=== PATIENT | male | born 2005 | race Two or more races ===

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

== ENCOUNTER 2025-06-09 23:42 | Emergency (ER) | payer OTHER, SELFPAY ==
--- OUTSIDE RECORDS SUMMARY | 2025-06-09 23:50 | XMS_ITS | Patient Health Record ---
Author Organization [facility] Address [address] [place] [address] Care Team Providers Care Sail Repair Person Name Role Phone Out of Area, Physician Primary Care Provider Rupinder vailable Allergies No Known Allergies Reason For Referral No Information Medications Medication SIG (Take, Route, Frequency, Duration) Notes Start Date End Date Status Doxycycline Monohydrate 100 MG Tablet 1 tab(s) orally daily; Duration: 30 day(s) 04/14/2021 Active Benzonatate 200 MG Capsule 1 cap(s) oral ly tid; Duration: 10 days 10/18/2021 Active Retin-A 0.1 % Cream 3 gms applied topica lly once a day (at bedtime); Duration: 30 day(s) 05/09/2021 Active Immunizations Vaccine Route Administration Date Status Comme nts #Fluzone IIV4 PF State 3 Yrs - 18 Yrs IM Intramuscular 07/08/2018 Administered HPV9 (Gardasil) State 11 to 18 Yrs IM Intramuscular 12/21/2016 Administered HPV9 (Gardasil) State 11 to 18 Yrs IM Intramuscular 10/22/2017 Administered Meningococcal (Menveo) State 11 Yrs to 18 Yrs IM Intramuscular 12/21/2016 Administered Meningococcal (Menveo) State 11 Yrs to 18 Yrs IM Intramuscular 10/22/2017 Administered Tdap State 7 Yrs to 18 Yrs IM Intramuscular 12/21/2016 Adm inistered Tdap State 7 Yrs to 18 Yrs IM Intramuscular 10/22/2017 Adm inistered Social History Tobacco Use: Social History Observation Description Date Details (start date - stop date) Never Smoker NA - NA Social History General Social Info Question Answer Notes Tobacco Use: Are you a: never smoker Additional Findings: Tobacco Non-User Current no n-smoker Additional Details Category Social Info Options Details General Occupation: 5th grade at [employer] Alcohol (beer, wine,spirits): no Sexually active/history: no Recreational drug use: no Smokeless Tobacco or other tobacco use no Exposure to second-hand smoke no School/Work/Home Problems no Living Situation Single Family H ousehold Cultural or Holiness Concerns N one Financial Concerns None Emotional Support Always Education Level High School Problems Problem Type SNOMED Code ICD Code Onset Dates Problem Status W/U Status Risk Notes Problem Acne vulgaris (23260225) Acne vulgaris (L70.0) Active confirmed Problem Conduct disorder (408779518) Behavioral disorder (F91.9) Active confirmed Problem Weight loss (571153780) Weight loss (R63.4) Active confirmed HCC Problem Keratosis pilaris (3298854) Keratosis Pilaris (L85.8) Active confirmed Problem Posterior rhinorrhea (25513494) Post-nasal drainage (R09.82) Active confirmed Problem Proteinuria (56705752) Proteinuria, unspecified type (R80.9) Problem resolved confirmed Plan Of Treatment No Information Insurance Providers Payer Name Payer Address Payer Phone Subscriber Number Group Number Insured Name Patient Relationship to Insured Coverage Start Date Coverage End Date MEDICAID [address] [address] [place] [address] [id number] Alfredo Smalls Self - patient is the insured Medical (General) History Medical History History ICD Code Proteinuria, unspecified type (resolved 04/12/2021) Surgical History Surgery Date(Month/Year) appendectomy 2010
--- OUTSIDE RECORDS SUMMARY | 2025-06-09 23:50 | XMS_ITS | Data Portability ---
Author Organization Pending sale to [facility] Address [address] [place] [address] Assessment No assessment recorded. Plan of Treatment Reminders Order Date Submit Date Provider Last Modified By Organization Details Last Modified Time Details Appointments None recorded. Lab rapid strep group A, throat [address], [address] [place] [address] , [place], [address], 4 11:06:38 rapid SARS CoV + SARS CoV 2 Ag, QL IA, respiratory specimen [address], [address] [place] [address] , [place], [address], 4 11:06:40 rapid flu (A+B) [address], [address] [place] [address] , [place], [address], 4 11:06:39 lipid panel, serum 2023 024 ANG[facility], [address], [place], [address], 4 06:22:05 CMP, serum or plasma 2023 024 ANGELES [facility], [address], [place], [address], 4 06:22:04 HbA1c (hemoglobin A1c), blood 2023 024 AN[facility], [address], [address], [place], [address], 4 06:22:06 TSH + free T4, serum 2023 024 ANGELES [facility], [address], [address], [place], [address], 4 06:22:03 CBC w/ auto diff 2023 024 ANGELES [facility], [address], [address], [place], [address], 4 06:22:03 Referral orthopedic surgeon referral - Has had Xray at [facility] 2024 025 [email or web address] 1 [facility], [address] [place] [address] , [place], [address], 5 22:03:51 physical therapist referral 2024 025 [facility], [facility] Damian Nye, [place], [address], 5 23:10:43 Procedures None recorded. Surgeries None recorded. Imaging None recorded. Medication Orders meloxicam 7.5 mg tablet 2024 025 [facility] [id number], [address] [facility] Juan Nye, [place], [address], 5 15:36:25 Medrol (Irwin) 4 mg tablets in a dose pack [email or web address] [place] [address] Pharmacy [id number], [address] [facility] , [place], [address], 4 11:26:19 meloxicam 15 mg tablet 2022 023 [facility] [id number], [address] [place] [address] , [place], [address], 11:26:12 Patient TargetsNo targets recorded. Patient Instructions Encounter Date Encounter Id Patient Instructions Last Modified By Organization Details Last Modified Time 06/05/2023 [id number] Start Steroids and meloxicam as directed. Rest, ice and elevate. Wear compression sleeve. Avoid shooting basketball for 2 weeks. If symptoms persist or worsen call pp or seek medical attention. Not available 06/05/2023 16:38:18 11/13/2023 [id number] Men's Guide to Preventive Health Care Not available 11/13/2023 11:31:34 PP will call wit h results. If you have any questions or concerns, call pp or seek medical attention. Not available 11/12/2023 13:25:10 04/09/2024 [id number] body mass index: care instructions Not available 04/09/2024 14:51:24 learning about healthy weight Not available 04/09/2024 14:51:25 Cleared to play sports without restriction. If you have any questions or concerns, call pp or seek medical attention. Not available 04/09/2024 14:51:09 04/21/2024 [id number] body mass index: care instructions Not available 04/21/2024 11:14:24 learning about healthy weight Not available 04/21/2024 11:14:24 Start Singular daily. Use Saline nasal spray. Keep humidifier in room. If symptoms persist or worsen, call pp or seek medical attention. Not available 04/21/2024 11:14:03 11/25/2024 [id number] body mass index: care instructions Not available 11/25/2024 15:38:28 learning about healthy weight Not available 11/25/2024 15:38:28 Start Meloxicam at least once daily. If pain persist or worsens after activity, take another 7.5mg tablet. Do no exceed 2 tablets (15mg) daily. Cont' ice/heat as needed. Follow up with PT and ortho. If symptoms persist or worsen, call pp or seek medical attention. Not available 11/25/2024 15:41:55 Reason for Referral Orthopedic Surgeon Referral for Pain of knee region Has had Xray at [facility] Referring Physician: Seda Jimenez [facility], Encounter Date: 11/25/2024 Physical Therapist Referral for Pain of knee region Referring Physician: Seda Jimenez [facility], Encounter Date: 11/25/2024 Results Created Date Observation Date Name Description Value Unit Range Abnormal Flag Note LastModifiedBy Organization Detail LastModifiedTime 11/13/19 24 11/14/2023 TSH+F REE T4 TSH 1.600 uIU/m L 0.450- 4.500 Not Available [facility] ([facility]) [address] [place], [address], 11/14/2023 06:22:03 11/13/1911/14/2023 TSH+F REE T4 T4,free(dire ct) 1.17 NG/dL 0.93-1 .60 Not Available [facility] ([facility]) [address] [place], [address], 11/14/2023 06:22:03 11/13/19 24 11/14/2023 CBC WITH DIFFE RENTI AL/PL ATELE T WBC 4.8 x10e3 /uL 3.4-10 .8 Not Available [facility] ([facility]) [address] [place], [address], 11/14/2023 06:22:03 11/13/19 24 11/14/2023 CBC WITH DIFFE RENTI AL/PL ATELE T RBC 5.84 x10e6 /uL 4.14-5 .80 above high normal Not Available [facility] ([facility]) [address] [place], [address], 11/14/2023 06:22:03 11/13/19 24 11/14/2023 CBC WITH DIFFE RENTI AL/PL ATELE T hemoglobin 17.2 g/dL 13.0-1 7.7 Not Available [facility] ([facility]) [address] [facility], [place], [address], 11/14/2023 06:22:03 11/13/19 24 11/14/2023 CBC WITH DIFFE RENTI AL/PL ATELE T hematocrit 49.6 % 37.5-5 1.0 Not Available [facility] ([facility]) [address] [facility], [place], [address], 11/14/2023 06:22:03 11/13/19 24 11/14/2023 CBC WITH DIFFE RENTI AL/PL ATELE T MCV 85 fL 79-97 Not Available [facility] ([facility]) [address] [facility], [place], [address], 11/14/2023 06:22:03 11/13/19 24 11/14/2023 CBC WITH DIFFE RENTI AL/PL ATELE T MCH 29.5 pg 26.6-3 3.0 Not Available [facility] ([facility]) [address] [place], [address], 11/14/2023 06:22:03 11/13/19 24 11/14/2023 CBC WITH DIFFE RENTI AL/PL ATELE T MCHC 34.7 g/dL 31.5-3 5.7 Not Available [facility] ([facility]) [address] [place], [address], 11/14/2023 06:22:03 11/13/19 24 11/14/2023 CBC WITH DIFFE RENTI AL/PL ATELE T RDW 13.0 % 11.6-1 5.4 Not Available [facility] ([facility]) [address] [place], [address], 11/14/2023 06:22:03 11/13/19 24 11/14/2023 CBC WITH DIFFE RENTI AL/PL ATELE T platelets 311 x10e3 /uL 150-45 0 Not Available [facility] ([facility]) [address] [facility], [place], [address], 11/14/2023 06:22:03 11/13/19 24 11/14/2023 CBC WITH DIFFE RENTI AL/PL ATELE T neutrophils 45 % not estab. Not Available [facility] ([facility]) [address] [facility], [place], [address], 11/14/2023 06:22:03 11/13/19 24 11/14/2023 CBC WITH DIFFE RENTI AL/PL ATELE T lymphs 43 % not estab. Not Available [facility] ([facility]) [address] [facility], [place], [address], 11/14/2023 06:22:03 11/13/19 24 11/14/2023 CBC WITH DIFFE RENTI AL/PL ATELE T monocytes 9 % not estab. Not Available [facility] ([facility]) [address] [facility], [place], [address], 11/14/2023 06:22:03 11/13/19 24 11/14/2023 CBC WITH DIFFE RENTI AL/PL ATELE T eos 3 % not estab. Not Available [facility] ([facility]) [address] [facility], [place], [address], 11/14/2023 06:22:03 11/13/19 24 11/14/2023 CBC WITH DIFFE RENTI AL/PL ATELE T basos 0 % not estab. Not Available [facility] ([facility]) [address] [facility], [place], [address], 11/14/2023 06:22:03 11/13/19 24 11/14/2023 CBC WITH DIFFE RENTI AL/PL ATELE T immature cells [employer] Not Available [facility] ([facility]) [address] [facility], [place], [address], 11/14/2023 06:22:03 11/13/19 24 11/14/2023 CBC WITH DIFFE RENTI AL/PL ATELE T neutrophils (absolute) 2.1 x10e3 /uL 1.4-7. 0 Not Available [facility] ([facility]) [address] [facility], [place], [address], 11/14/2023 06:22:03 11/13/19 24 11/14/2023 CBC WITH DIFFE RENTI AL/PL ATELE T lymphs (absolute) 2.0 x10e3 /uL 0.7-3. 1 Not Available [facility] ([facility]) [address] [facility], [place], [address], 11/14/2023 06:22:03 11/13/19 24 11/14/2023 CBC WITH DIFFE RENTI AL/PL ATELE T monocytes(ab solute) 0.4 x10e3 /uL 0.1-0. 9 Not Available [facility] ([facility]) [address] [facility], [place], [address], 11/14/2023 06:22:03 11/13/19 24 11/14/2023 CBC WITH DIFFE RENTI AL/PL ATELE T eos (absolute) 0.2 x10e3 /uL 0.0-0. 4 Not Available [facility] ([facility]) [address] [place], [address], 11/14/2023 06:22:03 11/13/19 24 11/14/2023 CBC WITH DIFFE RENTI AL/PL ATELE T baso (absolute) 0.0 x10e3 /uL 0.0-0. 2 Not Available [facility] ([facility]) [address] [place], [address], 11/14/2023 06:22:03 11/13/19 24 11/14/2023 CBC WITH DIFFE RENTI AL/PL ATELE T immature granulocytes 0 % not estab. Not Available [facility] ([facility]) [address] [facility], [place], [address], 11/14/2023 06:22:03 11/13/19 24 11/14/2023 CBC WITH DIFFE RENTI AL/PL ATELE T immature grans (abs) 0.0 x10e3 /uL 0.0-0. 1 Not Available [facility] ([facility]) [address] [facility], [place], [address], 11/14/2023 06:22:03 11/13/19 24 11/14/2023 CBC WITH DIFFE RENTI AL/PL ATELE T NRBC [employer] Not Available [facility] ([facility]) [address] [facility], [place], [address], 11/14/2023 06:22:03 11/13/19 24 11/14/2023 CBC WITH DIFFE RENTI AL/PL ATELE T hematology comments: [employer] Not Available [facility] ([facility]) [address] [facility], [place], [address], 11/14/2023 06:22:03 11/13/19 24 11/14/2023 COMP. METAB OLIC PANEL (14) glucose 83 mg/dL 70-99 Not Available [facility] ([facility]) [address] [facility], [place], [address], 11/14/2023 06:22:04 11/13/19 24 11/14/2023 COMP. METAB OLIC PANEL (14) BUN 11 mg/dL 6-20 Not Available [facility] ([facility]) [address] [facility], [place], [address], 11/14/2023 06:22:04 11/13/19 24 11/14/2023 COMP. METAB OLIC PANEL (14) creatinine 1.04 mg/dL 0.76-1 .27 Not Available [facility] ([facility]) [address], [place], [address], 11/14/2023 06:22:04 11/13/19 24 11/14/2023 COMP. METAB OLIC PANEL (14) eGFR 107 mL/mi n/1.7 3 >59 Not Available [facility] ([facility]) [address], [place], [address], 11/14/2023 06:22:04 11/13/19 24 11/14/2023 COMP. METAB OLIC PANEL (14) BUN/creatini ne ratio 11 9-20 Not Available [facility] ([facility]) [address], [place], [address], 11/14/2023 06:22:04 11/13/19 24 11/14/2023 COMP. METAB OLIC PANEL (14) sodium 139 mmol/ L 134-14 4 Not Available [facility] ([facility]) [address], [place], [address], 11/14/2023 06:22:04 11/13/19 24 11/14/2023 COMP. METAB OLIC PANEL (14) potassium 4.1 mmol/ L 3.5-5. 2 Not Available [facility] ([facility]) [address], [place], [address], 11/14/2023 06:22:04 11/13/19 24 11/14/2023 COMP. METAB OLIC PANEL (14) chloride 99 mmol/ L 96-106 Not Available [facility] ([facility]) [address], [place], [address], 11/14/2023 06:22:04 11/13/19 24 11/14/2023 COMP. METAB OLIC PANEL (14) carbon dioxide, total 23 mmol/ L 20-29 Not Available [facility] ([facility]) [address], [place], [address], 11/14/2023 06:22:04 11/13/19 24 11/14/2023 COMP. METAB OLIC PANEL (14) calcium 9.8 mg/dL 8.7-10 .2 Not Available [facility] ([facility]) [address] [place], [address], 11/14/2023 06:22:04 11/13/19 24 11/14/2023 COMP. METAB OLIC PANEL (14) protein, total 7.1 g/dL 6.0-8. 5 Not Available [facility] ([facility]) [address], [place], [address], 11/14/2023 06:22:04 11/13/19 24 11/14/2023 COMP. METAB OLIC PANEL (14) albumin 4.9 g/dL 4.3-5. 2 Not Available [facility] ([facility]) [address] [place], [address], 11/14/2023 06:22:04 11/13/19 24 11/14/2023 COMP. METAB OLIC PANEL (14) globulin, total 2.2 g/dL 1.5-4. 5 Not Available [facility] ([facility]) [address] [place], [address], 11/14/2023 06:22:04 11/13/19 24 11/14/2023 COMP. METAB OLIC PANEL (14) A/G ratio 2.2 1.2-2. 2 Not Available [facility] ([facility]) [address] [place], [address], 11/14/2023 06:22:04 11/13/19 24 11/14/2023 COMP. METAB OLIC PANEL (14) bilirubin, total 0.6 mg/dL 0.0-1. 2 Not Available [facility] ([facility]) [address] [place], [address], 11/14/2023 06:22:04 11/13/19 24 11/14/2023 COMP. METAB OLIC PANEL (14) alkaline phosphatase 95 IU/L 51-125 Not Available [facility] ([facility]) [address] [place], [address], 11/14/2023 06:22:04 11/13/19 24 11/14/2023 COMP. METAB OLIC PANEL (14) AST (SGOT) 29 IU/L 0-40 Not Available [facility] ([facility]) [address] [place], [address], 11/14/2023 06:22:04 11/13/19 24 11/14/2023 COMP. METAB OLIC PANEL (14) ALT (SGPT) 50 IU/L 0-44 above high normal Not Available [facility] ([facility]) [address] [place], [address], 11/14/2023 06:22:04 11/13/19 24 11/14/2023 LIPID PANEL cholesterol, total 158 mg/dL 100-16 9 Not Available [facility] ([facility]) [address] [place], [address], 11/14/2023 06:22:05 11/13/19 24 11/14/2023 LIPID PANEL triglyceride s 99 mg/dL 0-89 above high normal Not Available [facility] ([facility]) [address] [place], [address], 11/14/2023 06:22:05 11/13/19 24 11/14/2023 LIPID PANEL HDL cholesterol 36 mg/dL >39 below low normal Not Available [facility] ([facility]) [address] [place], [address], 11/14/2023 06:22:05 11/13/19 24 11/14/2023 LIPID PANEL VLDL cholesterol suki 18 mg/dL 5-40 Not Available [facility] ([facility]) [address] [place], [address], 11/14/2023 06:22:05 11/13/19 24 11/14/2023 LIPID PANEL LDL chol calc ([facility]) 104 mg/dL 0-109 Not Available [facility] ([facility]) [address] [place], [address], 11/14/2023 06:22:05 11/13/19 24 11/14/2023 LIPID PANEL comment: [employer] Not Available [facility] ([facility]) [address] [place], [address], 11/14/2023 06:22:05 11/13/19 24 11/14/2023 HEMOG LOBIN A1C hemoglobin A1C 5.6 % 4.8-5. 6 Predi abete s: 5.7 - 6.4 Diabe elwis: >6.4 Glyce say contr ol for adult s with diabe lewis: <7.0 Not Available [facility] ([facility]) [address] [place], [address], 11/14/2023 06:22:06 11/13/19 24 11/14/2023 HEPAT IC FUNCT ION PANEL (7) protein, total 7.3 g/dL 6.0-8. 5 Not Available [facility] ([facility]) [address] [place], [address], 11/15/2023 06:20:50 11/13/19 24 11/14/2023 HEPAT IC FUNCT ION PANEL (7) albumin 5.0 g/dL 4.3-5. 2 Not Available [facility] ([facility]) [address] [place], [address], 11/15/2023 06:20:50 11/13/19 24 11/14/2023 HEPAT IC FUNCT ION PANEL (7) bilirubin, total 0.5 mg/dL 0.0-1. 2 Not Available [facility] ([facility]) [address] [place], [address], 11/15/2023 06:20:50 11/13/19 24 11/14/2023 HEPAT IC FUNCT ION PANEL (7) bilirubin, direct 0.14 mg/dL 0.00-0 .40 Not Available [facility] ([facility]) [address] [place], [address], 11/15/2023 06:20:50 11/13/19 24 11/14/2023 HEPAT IC FUNCT ION PANEL (7) alkaline phosphatase 96 IU/L 51-125 Not Available [facility] ([facility]) [address] [place], [address], 11/15/2023 06:20:50 11/13/19 24 11/14/2023 HEPAT IC FUNCT ION PANEL (7) AST (SGOT) 26 IU/L 0-40 Not Available [facility] ([facility]) [address] [place], [address], 11/15/2023 06:20:50 11/13/19 24 11/14/2023 HEPAT IC FUNCT ION PANEL (7) ALT (SGPT) 45 IU/L 0-44 above high normal Not Available [facility] ([facility]) [address] [place], [address], 11/15/2023 06:20:50 11/13/19 24 11/15/2023 ACUTE HEPAT ITIS hep A Ab, IgM Negati ve negati ve Not Available [facility] ([facility]) [address] [place], [address], 11/15/2023 06:20:51 11/13/19 24 11/15/2023 ACUTE HEPAT ITIS HBsAg screen Negati ve negati ve Not Available [facility] ([facility]) [address] [place], [address], 11/15/2023 06:20:51 11/13/19 24 11/15/2023 ACUTE HEPAT ITIS hep B core Ab, IgM Negati ve negati ve Not Available [facility] ([facility]) [address] [facility], [place], [address], 11/15/2023 06:20:51 11/13/19 24 11/15/2023 ACUTE HEPAT ITIS HCV Ab Non Reacti ve non reacti ve Not Available [facility] ([facility]) [address] [facility], [place], [address], 11/15/2023 06:20:51 11/13/19 24 11/15/2023 ACUTE HEPAT ITIS interpretati on: Commen t Not infec lionel with HCV unles s early or acute infec tion is suspe cted (whic h may be delay ed in an immun ocomp romis ed indiv idual ), or other evide nce exist s to indic ate HCV infec tion. Not Available [facility] ([facility]) [address] [facility], [place], [address], 11/15/2023 06:20:51 11/13/19 24 11/14/2023 GGT GGT 40 IU/L 0-65 Not Available [facility] ([facility]) [address] [facility], [place], [address], 11/15/2023 06:20:52 11/13/19 24 11/14/2023 VERBA L ADD-O N verbal add-on Commen t This repor t has been gener ated by your reque st for addit ional testi ng. The addit ional reque st may have requi red some testi ng to be repea lionel. Becau se of marija tic varia bilit y, the resul ts may not corre spond exact ly to the previ ous repor t. Inter pret these resul ts appro priat michelle. Not Available [facility] ([facility]) [address] [facility], [place], [address], 11/15/2023 06:20:53 11/13/19 24 11/14/2023 RM TIN ferritin 96 NG/mL 16-124 Not Available [facility] ([facility]) [address] [facility], [place], [address], 11/15/2023 06:20:54 11/13/19 24 11/14/2023 WRITT EN AUTHO RIZAT ION written authorizatio n [place] t [employer] en Autho rizat ion Recei ryan. Autho rizat ion recei ryan from [employer] ADD 11-13 Logge d by Isaac bess Not Available [facility] ([facility]) [address] [facility], [place], [address], 11/15/2023 06:20:55 04/21/20 24 04/21/2024 rapid strep group A, throa t Strep negati ve Not Available [address] , [place], [address], 04/21/2024 10:35:38 04/21/20 24 04/21/2024 rapid strep group A, throa t Culture No Not Available [address] , [place], [address], 04/21/2024 10:35:38 04/21/20 24 04/21/2024 rapid flu (A+B) Flu positi ve Not Available [address] , [place], [address], 04/21/2024 10:35:31 04/21/20 24 04/21/2024 rapid flu (A+B) Type B Not Available [address] , [place], [address], 04/21/2024 10:35:31 04/21/20 24 04/21/2024 rapid SARS CoV + SARS CoV 2 Ag, QL IA, respi rator y speci men SARS CoV antigen Negati ve Not Available [address] , [place], [address], 04/21/2024 10:35:24 11/26/19 24 US, liver No observ ation record ed. [address] , [place], [address], 11/26/2023 17:05:26 09/10/19 25 09/10/2024 XR, knee No observ ation record ed. [email or web address] [facility] [address], [place], [address], 09/14/2024 14:47:29 Result Notes None recorded. Procedures Surgical History Date Name Laterality Status Provider Name and Address Organization Details Recorded Time 3 Appendectomy completed Yazmin Tidwell [place] - [facility] 04/09/2023 13:54:01 1 appendectomy completed Millicent Nielsen [place] - [facility] 04/2022 09:25:18 Imaging Results None recorded. Procedure Notes None recorded. Medical Equipment None Reported. Allergies No known drug allergies Medications Name Sig Start Date Stop Date Status Note LastModified by Organization Details LastModified Time cyclobenzap rine 10 mg tablet 04/09 completed Not Available Not Available Not Available acetaminoph en 325 mg tablet TAKE TWO (2) TABLETS BY MOUTH EVERY SIX (6) HOURS NEEDED 04/09 completed Not Available Not Available Not Available Saline Mist 0.65 % nasal spray aerosol Take 1 spray 4 times a day by nasal route as needed. 11/14 completed Not Available Not Available Not Available cetirizine 10 mg tablet TAKE ONE (1) TABLET BY MOUTH ONCE A DAY 04/09 completed Not Available Not Available Not Available azithromyci n 250 mg tablet TAKE 2 TABLETS (500 MG) BY ORAL ROUTE ONCE DAILY FOR 1 DAY THEN 1 TABLET (250 MG) BY ORAL ROUTE ONCE DAILY FOR 4 DAYS 10/19 completed Not Available Not Available Not Available benzonatate 200 mg capsule Take 1 capsule 3 times a day by oral route as needed. 04/09 completed Not Available Not Available Not Available meloxicam 15 mg tablet Take 1 tablet every day by oral route. 11/12 completed Not Available Not Available Not Available prednisone 20 mg tablet TAKE 1 TABLET BY MOUTH TWICE DAILY 04/09 completed Not Available Not Available Not Available clindamycin 1 %-benzoyl peroxide 5 % topical gel APPLY TO THE AFFECTED AREA(S) BY TOPICAL ROUTE TWO (2) TIMES PER DAY IN THEMORNIN G AND EVENING 11/14 completed Not Available Not Available Not Available triamcinolo ne acetonide 0.1 % topical cream APPLY A THIN LAYER TO THE AFFECTED AREA(S) BY TOPICAL ROUTE TWO (2) TIMES PER DAY 04/09 completed Not Available Not Available Not Available ketorolac 10 mg tablet 11/12 completed Not Available Not Available Not Available meloxicam 7.5 mg tablet Take 1 tablet twice a day by oral route as needed. 2024 active Not Available Not Available Not Avai lable famotidine 20 mg tablet TAKE 1 TABLET BY MOUTH TWICE DAILY 04/09 completed Not Available Not Available Not Available Banophen 25 mg capsule TAKE ONE (1) CAPSULE BY ORAL ROUTE EVERY SIX (6) HOURS NEEDED 09/13 completed Not Available Not Available Not Available montelukast 10 mg tablet TAKE ONE (1) TABLET BY MOUTH ONCE A DAY active Not Available Not Available No t Available methylpredn isolone 4 mg tablets in a dose pack Take as directed. 11/12 completed Not Available Not Available Not Available albuterol sulfate HFA 90 mcg/actuati on aerosol inhaler Inhale 2 puffs every 4 hours by inhalatio n route. 04/09 completed Not Available Not Available Not Available naproxen 500 mg tablet 11/25 completed Not Available Not Available Not Available Symbicort 80 mcg-4.5 mcg/actuati on HFA aerosol inhaler INHALE TWO (2) PUFF DIRECTED TWICE A DAY WITH SPACER 04/09 completed Not Available Not Available Not Available Mucus Relief ER 600 mg tablet, extended release 10/19 completed Not Available Not Available Not Available Vitals Date Recorded Body height Body mass index (BMI) [Percentile] Per age and sex Body mass index (BMI) Body weight Body temperature Heart rate Oxygen saturation Oxygen saturation in Arterial blood by Pulse oximetry Respiratory rate Pain severity - 0-10 verbal numeric rating [Score] - Reported Systolic And Diastolic Provider Name and Address Organization Details Last Updated DateTime 4 157.48 cm 84 % 25.5 kg/m2 05984.7 4 g 98.1 [degF] 53 /min 98 % 98 % 18 /min 0 116/62 mm[Hg] Anais Higginbotham [place] - [facility] 4 11:25:41 Date Recorded Body height Body mass index (BMI) Body mass index (BMI) [Percentile] Per age and sex Body weight Body temperature Oxygen saturation Oxygen saturation in Arterial blood by Pulse oximetry Respiratory rate Pain severity - 0-10 verbal numeric rating [Score] - Reported Heart rate Systolic And Diastolic Provider Name and Address Organization Details Last Updated DateTime 5 157.48 cm 26.3 kg/m2 84 % 09010.3 g 97.7 [degF] 98 % 98 % 18 /min 2 80 /min 122/66 mm[Hg] Anais Higginbotham [place] - [facility] 5 15:21:07 Date Recorded Body height Body mass index (BMI) Body mass index (BMI) [Percentile] Per age and sex Body weight Body temperature Heart rate Oxygen saturation Oxygen saturation in Arterial blood by Pulse oximetry Respiratory rate Pain severity - 0-10 verbal numeric rating [Score] - Reported Systolic And Diastolic Provider Name and Address Organization Details Last Updated DateTime 4 157.48 cm 26.2 kg/m2 86 % 65544.7 1 g 97.7 [degF] 73 /min 97 % 97 % 16 /min 0 116/58 mm[Hg] Anais Higginbotham [place] - [facility] 4 14:24:45 Date Recorded Body height Body mass index (BMI) [Percentile] Per age and sex Body mass index (BMI) Body weight Body temperature Heart rate Oxygen saturation Oxygen saturation in Arterial blood by Pulse oximetry Respiratory rate Pain severity - 0-10 verbal numeric rating [Score] - Reported Systolic And Diastolic Provider Name and Address Organization Details Last Updated DateTime 4 157.48 cm 83 % 25.6 kg/m2 91624.6 3 g 98.2 [degF] 66 /min 98 % 98 % 16 /min 0 116/64 mm[Hg] Anais Higginbotham [place] - [facility] 4 10:34:36 Date Recorded Body height Body mass index (BMI) Body mass index (BMI) [Percentile] Per age and sex Body weight Body temperature Heart rate Oxygen saturation Oxygen saturation in Arterial blood by Pulse oximetry Respiratory rate Pain severity - 0-10 verbal numeric rating [Score] - Reported Systolic And Diastolic Provider Name and Address Organization Details Last Updated DateTime 3 157.48 cm 25.9 kg/m2 87 % 06970.3 2 g 98.3 [degF] 83 /min 98 % 98 % 18 /min 8 110/70 mm[Hg] Jada Taveras [place] - [facility] 3 16:03:11 Social History Question Answer Notes LastModified by Organizat ion Details LastModified Time Tobacco Smoking Status Never Smoker Millicent marrero [place] - [facility] 03/13/2022 09:23:52 Do You Wear A Helmet When Biking? No [email or web address] Information not available 04/09/2023 Are You Blind Or Do You Have Difficulty Seeing? No Information not available 04/09/2024 What Is Your Level Of Caffeine Consumption? Occasional [email or web address] Information not available 04/09/2023 Are You Deaf Or Do You Have Serious Difficulty Hearing? No Information not available 04/09/2024 What Type Of Diet Are You Following? REGULAR [email or web address] Information not available 06/05/2023 What Is The Highest Grade Or Level Of School You Have Completed Or The Highest Degree You Have Received? [id number] Information not available 04/09/2024 Have There Been Any Changes To Your Family Or Social Situation? No Information no t available 03/13/2022 What Is The Fluoride Status Of Your Home? Unknown [email or web address] Information not available 06/05/2023 What Grade Are You In? [id number] Information not available 04/09/2024 Are There Any Guns Present In Your Home? No Information not available 06/05/2023 What Is Your Home Situation? Both Parents [email or web address] Information not available 06/05/2023 What Was The Date Of Your Most Recent Tobacco Screening? 11/25/2024 Information not available 11/25/2024 How Many Children Do You Have? 0 Information not available 06/05/2023 What Is Your Parents' Marital Status? [email or web address] Information not available 04/09/2023 Do You Use Protection During Sex? No Information not available 06/05/2023 Do You Use Protection Against STDs? No [email or web address] Information not available 04/09/2023 What Is Your Relationship Status? Single [email or web address] Information not available 04/09/2023 What Is The Name Of Your School? [employer] [email or web address] Information not available 06/05/2023 Do You Use Your Seat Belt Or Car Seat Routinely? Yes Information not available 04/09/2023 Are You Sexually Active? No [email or web address] Information not available 03/13/2022 Do You Have Smoke And Carbon Monoxide Detectors In Your Home? Yes [email or web address] Information not available 03/13/2022 Are You Passively Exposed To Smoke? No Information no t available 03/13/2022 What Types Of Sporting Activities Do You Participate In? Basketball [email or web address] Information not available 06/05/2023 Has Tobacco Cessation Counseling Been Provided? Yes [email or web address] Information not available 06/05/2023 On What Date Was Tobacco Cessation Counseling Provided? 11/25/2024 Information not available 11/25/2024 Do You Have Difficulty Walking Or Climbing Stairs? No Information not available 04/09/2024 Are You Currently In School? Yes [email or web address] Information not available 06/05/2023 Which Type Of Protection Is Used? None, Abstinent [email or web address] Information not available 04/09/2023 Sex: Male Functional Status Question Answer Note LastModified by Organizat ion Details LastModified Time Do you use any illicit or recreational drugs? No [email or web address] Information not available 04/09/2023 Do you or have you ever used any other forms of tobacco or nicotine? No [email or web address] Information not available 06/05/2023 What is your level of alcohol consumption? None Information not available 03/13/2022 Are you currently employed? No Information not available 04/09/2024 Do you have transportation difficulties? No Information not available 04/09/2024 Are you able to walk independently without assistance or assistive devices? [email or web address] Information not available 04/09/2024 Do you have difficulty doing errands alone? No Information not available 04/09/2024 Are you able to care for yourself independently? Yes Information not available 04/09/2024 Do you have difficulty dressing, bathing, grooming, or toileting? No Information not available 04/09/2024 What is your exercise level? Moderate [email or web address] Information not available 04/09/2023 Mental Status Question Answer Note LastModified by Organizat ion Details LastModified Time Do you feel stressed (tense, restless, nervous, or anxious, or unable to sleep at night)? [id number] [email or web address] Information not available 06/05/2023 Do you have difficulty concentrating, remembering or making decisions? No Information no t available 04/09/2024 Are you or have you been involved with bullying? No [email or web address] Information not available 06/05/2023 Family History Relationship Description Onset Age of this Age Resolved Age Notes LastModified by Organization Details LastModified Time Mother Disease of liver [email or web address] Not available 2022 15:49:59 Mother Diabetes mellitus [email or web address] Not available 2021 17:05:20 Brother Multiple sclerosis [email or web address] Not available 2022 13:53:59 Medical History Condition Response ADD/ADHD Y Head Injury/Concussion Y Acne Y Immunizations Vaccine Type Date Status Note Provider Nam e and Address Organization Details Recorded Time COVID-19, mRNA, LNP-S, PF, 100 mcg/0.5mL dose or 50 mcg/0.25mL dose 2 completed Millicent Nielsen null, [place] - [facility] 07/19/2022 17:55:59 Influenza, split virus, quadrivalent, preservative 2 completed Millicent Nielsen [place], [place] - [facility] 07/19/2022 17:55:59 HPV9 2 completed Millicent Nielsen [place] - [facility] 07/19/2022 17:55:59 Meningococcal MCV4O 2 completed Millicent Nielsen [place] - [facility] 07/19/2022 17:56:00 COVID-19, mRNA, LNP-S, PF, 100 mcg/0.5mL dose or 50 mcg/0.25mL dose 3 completed Millicent Nielsen [place], [place] - [facility] 09/13/2022 14:01:35 COVID-19, mRNA, LNP-S, bivalent, PF, 50 mcg/0.5 mL or 25mcg/0.25 mL dose 3 completed Millicent Nielsen null, [place] - [facility] 11/14/2022 16:26:13 HPV9 4 completed Anais Higginbotham null, [place] - [facility] 11/13/2023 12:52:19 Past Encounters Encounter ID Performer Location Encounter Start Date Encounter Closed Date Diagnosis/Indication Diagnosis SNOMED-CT Code Diagnosis ICD10 Code Diagnosis IMO Codes Diagnosis Note [id number] Seda Jimenez APRN [address] [place] [address] 03/13/2022 09:02:59 03/13/2022 09:36:05 Cystic acne 02215932 L70.0 Body mass index 20-24 - normal 093592393 Z68.23 General ex amination of patient 364879410 Z00.129 Depression screening 171 823333 Z13.31 PHQ-2 [id number] Randa Perla APRN [facility] [address] [place] [address] 04/13/2022 12:59:55 04/13/2022 13:37:57 Pain in throat 104017547 R07.0 COVID-19 169895095 U07.1 no sign of a bacterial infection. likely viral. viruses can take 7-14 days to run their course. nasal saline and bulb syringe to remove nasal drainage to help with congestion . monitor temp. Tylenol or Motrin as needed for pain or fever. encourage fluids, water, Gatorade, power aide, Pedialyte if /tod dler/child warm salt water gargles warm fluids sore throat lozenges sleep elevated humidifier /vaporizer follow up immediatel y for new or worsening symptoms or no noticeable improvemen t over the next 48-72 hours [id number] Seda Jimenez APRN [address] [place] [address] 07/19/2022 16:51:22 07/19/2022 17:45:08 History and physical examination, [facility] 95743808 Z02.0 Administra tion of SARS-CoV-2 mRNA vaccine 8620833523 Z23 First dose Influenza vaccine needed 5356942689 106 Z23 Active or passive immunization 366465315 Z23 [id number] Seda Jimenez APRN [address] [place] [address] 09/13/2022 12:57:43 09/13/2022 14:34:11 Abdominal pain 18103316 R10.9 Administra tion of SARS-CoV-2 mRNA vaccine 1497489970 Z23 Second dose. Acid reflux 559987018 K2 1.9 Body mass index 25-29 - overweight 617505884 Z68.25 [id number] Chris Ramos PA-C [address] [place] [address] 10/08/2022 11:18:55 10/08/2022 12:02:32 Cough 12259955 R05.9 Acute bronchitis 6147311 2 J20.9 Discussed supportive care with patient. Advised to drink plenty of fluids and fluids containing electrolyt es. Try to get plenty of rest. Can take OTC pain medication such as tylenol or ibuprofen (dosed based on weight for pediatric patients) as needed to relieve fever, headache, or body aches. If patient should get worse call clinic or go to emergency room. Discussed expected course and cautioned signs and sxs to seek further treatment. Bleeding from nose 64546 6005 R04.0 no foreign bodies in nose. trial of nasal saline. Influenza 8694561 J11.1 [id number] Seda Jimenez APRN [address] [place] [address] 10/19/2022 14:38:21 10/19/2022 15:16:40 Cough 60928715 R05.9 [id number] Chris Ramos PA-C [address] [place] [address] 10/22/2022 08:14:18 10/22/2022 10:13:26 Cough 61748955 R05.9 needing PCR covid. [id number] Seda Jimenez APRN [address] [place] [address] 11/14/2022 15:22:02 11/14/2022 16:51:16 Well child visit 245471702 Z00.129 Dietary ma nagement surveillance 650614639 Z71.3 Exercises education, guidance, and counseling 078335066 Z71.82 Depression screening 171 566938 Z13.89 PHQ-2 On examina tion - general eye examination 545640014 Z01.00 Administra tion of SARS-CoV-2 mRNA vaccine 0292156173 Z23 Second dose. Body mass index 25-29 - overweight 334468376 Z68.25 Hyperlipid emia screening 442925780 Z13.220 Diabetes m ellitus screening 747469224 Z13.1 Thyroid di sorder screening 957467538 Z13.29 [id number] Seda Jimenez APRN [address] [place] [address] 11/27/2022 14:01:45 11/27/2022 14:34:32 Pruritic rash 12022343 L28.2 Body mass index 25-29 - overweight 961957185 Z68.25 [id number] Nida Winchester DO [address] [place] [address] 04/09/2023 13:45:38 04/09/2023 16:34:25 Cough 24044342 R05.9 COVID-19 379530421 U07.1 Most bothersome symptom is the cough. No chest pain or SOB. Recommend supportive care with cough syrup. ER precaution s given. He was given a note to stay home from school for the week and wear a mask for the next 5 days. [id number] Karen Jin MD [address] [place] [address] 04/23/2023 15:10:27 04/23/2023 16:12:06 Acute upper respiratory infection 92122252 J06.9 [id number] Seda Jimenez APRN [address] [place] [address] 05/01/2023 08:18:13 05/01/2023 08:53:40 Cough 70122024 R05.3 [id number] YANI [place] [address] [place] [address] 06/05/2023 15:49:12 06/05/2023 16:39:14 History and physical examination, sports participation 346139343 Z02.5 Right late ral elbow tendinopathy 1507520294 07590 M77.11 Body mass index 25-29 - overweight 740966063 Z68.25 [id number] Seda Jimenez APRN [address] [place] [address] 11/13/2023 10:54:12 11/13/2023 12:14:48 General examination of patient 370260776 Z00.00 Hyperlipid emia screening 176601141 Z13.220 Endocrine/ metabolic screening 772084092 Z13.228 Exercises education, guidance, and counseling 487408191 Z71.82 The patient was advised to continue a healthy diet and exercise regularly. Dietary ma nagement surveillance 617392818 Z71.3 Thyroid di sorder screening 186048082 Z13.29 Cough 36871971 R05.3 Depression screening 171 721137 Z13.89 PHQ-0 Chronic cough 62662997 R 05.3 Active or passive immunization 806919928 Z23 [id number] YANI Maldonado[address] [place] [address] 04/09/2024 14:00:21 04/09/2024 14:56:37 History and physical examination, sports participation 818348537 Z02.5 Body mass index 25-29 - overweight 680652256 Z68.26 Overweight 319581548 E66 .3 [id number] Seda Jimenez APRN [address] [place] [address] 04/21/2024 10:18:30 04/21/2024 11:16:25 Influenza caused by Influenza B virus 60133426 J10.1 Viral screening 45915645 4 Z11.52 Pharyngitis 129806595 J0 2.9 Body mass index 25-29 - overweight 818056650 Z68.25 Overweight 096710170 E66 .3 [id number] Seda Jimenez APRN [facility] [address] [place] [address] 11/25/2024 14:58:31 11/25/2024 15:45:55 Pain of knee region 2170052865 M25.562 93834301 Overweight in adulthood with body mass index of 25 or more but less than 30 362436871 Z68.26 2659685571 Overweight 679018682 E66 .3 Health Concerns Section Related Observation LastModified by Organization Detai ls LastModified Time None Recorded Concern Status LastModified by Organization Details LastModified Time None Recorded Advance Directives Directive None Recorded Payers Insurance Date Sequence Insurance Name Policy Number Policy Blake Covered Member ID Blake Member ID Guarantor Name 05/04/2022 1 UNSPECIFIED REMIT PAYOR 11/25/2024 [place] Marie A Smalls [id number] 11/25/2024 2 [facility] [place] PRIOR TO 2022 ([place] RE[place]AC[place] Smalls [id number] 11/25/2024 [place] Smalls [id number] 11/25/2024 [place] Smalls [id number] 11/25/2024 [place] Smalls [id number] 11/25/2024 2 [employer] AFTER 2022 ([place] RE[place]ACEMENT - HMO) Marie Gilla [id number] 11/25/2024 [place] Marie [place] Smalls [id number] 11/25/2024 1 [facility] PL[facility] (MEDICAID REPLACEMENT - [place]MO) [place] Marie A Smalls [id number] 11/25/2024 2 [place] [facility] [place] FFS/TRADITION JORDIN Smalls [id number] 11/25/2024 1 *SELF PAY* 11/25/2024 2 [place] FFS/TRADITION JORDIN Smalls [id number] 11/04/2024 SLIDING FEE SCHEDULE - DISCOUNT 11/25/2024 [place] Marie Smalls [id number] 11/25/2024 [place] [facility] [place] AL Smalls [id number] Notes Date Note Type Note Provider Name and Address Organization Details Recorded Time 06/05/2023 text/html ROS as noted in the HPI Marie is a 17 y/o female that presents to the office today for a sports physical. He was playing basketball today and started to have pain in his right lateral elbow. This pain started last week, went to the ER for this, was given steroids and muscle relaxers, symptoms subsided until today.Pain is constant and tender.Shoots basketball multiple times a day for long periods of time. Seda Jimenez APRN [address], [place], [address], [place] - [facility] 06/05/2023 16:38:56 11/13/2023 text/html ROS as noted in the HPI Marie presents to the office today for an annual wellness exam and fasting labs. Has paperwork to be filled out for home school due to chronic cough. Has only had one HPV vaccine. Seda Jimenez APRN [address], [place], [address], [place] - [facility] 11/13/2023 12:03:21 04/09/2024 text/html ROS as noted in the HPI Marie presents today for school/sport physical to play basketball. Seda Jimenez APRN [address], [place], [address], [place] - [facility] 04/09/2024 14:51:41 04/21/2024 text/html ROS as noted in the HPI Marie presents today with complaints of sore throat, congestion, cough and sneezing for the past week.States he has had intermittent bloody nose.Has been taking OTC Theraflu.Denies nausea or diarrhea. Only had emesis once.Voices that the worse of his symptoms today is nasal drainage.Has not been taking his Singular. Seda Jimenez APRN [address], [place], [address], [place] - [facility] 04/21/2024 11:14:48 11/25/2024 text/html ROS as noted in the HPI Marie presents today with intermittent pain under his left knee joint.States this started around 2 months ago after basketball season. Denies any known injury.Pain does not radiate.Denies numbness or tingling.Pain is worse with extension of his leg. Walking, running or activity does not aggravate the pain.Has used ice, heat, and icy/hot and ibuprofen with little to no relief. Has been to [facility] ER a couple of times for pain. Mother states the X-Rays showed swelling and was advised to apply ice.Will apply ice PRN for pain which will relieve pain. Seda Jimenez APRN [address], [place], [address], [place] - [facility] 11/25/2024 15:42:36
--- OUTSIDE RECORDS SUMMARY | 2025-06-09 23:50 | XMS_ITS | Clinical Summary ---
Author Organization [facility] Address [address] [place] [address] Care Team Providers Care Digital Commentator Name Role Phone Seda Spain Primary Care Provider Allergies No known active allergies Medications famotidine (Pepcid) 20 MG tablet Take 1 tablet (20 mg) by mouth 2 (two) times a day. 3 Active albuterol 108 (90 Base) MCG/ACT inhalerIndicati ons:Chronic cough Take 2 to 6 puffs every 3 to 4 hourly as needed for cough, wheezing or shortness of air. May take 2 to 4 puffs 15 minutes prior to exercise. 18 g 11 3 Active montelukast (Singulair) 10 MG tabletIndicatio ns:Chronic cough Take 1 tablet (10 mg) by mouth 1 (one) time each day. 30 tablet 5 3 Active Active Problems Problem Noted Date Diagnosed Date Chronic cough 06/05/2023 Immunizations Immunization Administration Dates Next Due DTP 11/02/2009, 7,09/04/2006, 006,2005 HPV 9-Valent 07/19/2022 Hep A, Unspecified 11/14/2007,12/31/2006 Hep B, Adolescent or Pediatric 7,09/04/2006,02/14/2006, 006,2005 Influenza, injectable, quadrivalent 07/19/2022 MMR 11/02/2009,12/31/2006 Meningococcal ACWY, unspecified 12/21/2016 Meningococcal MCV4O 07/19/2022 Polio, Unspecified 11/02/2009, 7,09/04/2006, 006,2005 Tdap 12/21/2016 Varicella 11/02/2009,12/31/2006 Family History Medical History Relation Name Comments Asthma Brother 1 Multiple sclerosis Brother 2 Asthma Father Relation Name Status Comments Brother 1 Brother 2 Alive Father Social History Tobacco Use Types Packs/Day Years Used Date Smoking Tobacco: Never Passive Smoke Exposure: Never Smokeless Tobacco: Never Tobacco Cessation:Counseling Given: Not Answered Sex and Gender Information Value Date Recorded Sex Assigned at Not on file Legal Sex Male 8:16 AM EDT Gender Identity Not on file Sexual Orientation Not on file Last Filed Vital Signs Vital Sign Reading Time Taken Comments Blood Pressure 103/65 07/03/2023 9:27 AM EST Pulse 63 07/03/2023 9:27 AM EST Temperature 36.8 C (98.2 F) 07/03/2023 9:27 AM EST Respiratory Rate 20 07/03/2023 9:27 AM EST Oxygen Saturation 98% 07/03/2023 9:27 AM EST Inhaled Oxygen Concentration - - Weight 65.1 kg (143 lb 8.3 oz) 07/03/2023 9:27 A M EST Height 158.5 cm (5' 2.4 ) 07/03/2023 9:27 AM EST Body Mass Index 25.91 07/03/2023 9:27 AM EST Body Mass Index Percentile 87.28% 07/03/2023 9:2 7 AM EST Growth Chart: CDC (Boys, 2-2 0 Years) Plan of Treatment Health Maintenance Due Date Last Done Comments [facility]-Depression Screening 2005 [facility]-HIV Screening 2005 [facility]-Hepatitis C Screening 2005 [facility]-/Child/Adol SDOH Screenings 2005 Fluoride Varnish 06/15/2006 HPV Vaccines (2 - Male 3-dose series) 08/16/2022 07/19/2022 [facility]- SDOH Screenings 10/14/2023 [facility]-Adult SDOH Screenings 10/14/2023 [id number] Vaccine ( - season) 2025 11/14/2022, 09/13/2022, 07/19/2022 [facility]-Influenza Vaccine (#1) 2025 07/19/2022 [facility]-DTaP,Tdap,and Td Vaccines (7 - Td or Tdap) 12/21/2026 12/21/2016, 11/02/2009, 12/31/2006, Additional history exists [facility]-Zoster Vaccines (1 of 2) 10/14/2055 11/02/2009, 12/31/2006 [facility]-Hepatitis B Vaccines Completed 007, 09/04/2006, 02/14/2006, Additional history exists [facility]-Hepatitis A Vaccines Completed 11/14/2007, 12/04 [facility]-IPV Vaccines Aged Out 11/02/2009, , 09/04/2006, Additional history exists No longer eligible based on patient's age to complete this topic [facility]-Varicella Vaccines Completed 11/02/2009, 2006 [facility]-Obesity Intervention Completed 07/03/2023 [facility]-HIB Vaccines Aged Out No longer e ligible based on patient's age to complete this topic [facility]-Pneumococcal Vaccine: Pediatrics (0 to 5 Years) and At-Risk Patients (6 to 49 Years) Aged Out No longer eligible based on patient's age to complete this topic [facility]-Rotavirus Vaccines Aged Out No lo nger eligible based on patient's age to complete this topic Insurance [facility] MEDICAID Care Teams Digital Commentator Relationship Specialty Start Date End Date Seda Spain [address] [place] [id number] PCP - General Family Medicine 05/22/23
[2025-06-09 23:51] VITALS: BP 116/73; PULSE 78; RESP 17; TEMP 36.6; O2SAT 99; BMI 24.2
--- NOTE | 2025-06-09 23:57 | HMH.EDGENADL ---
Discharge Plan Disposition Patient Disposition: Home, Self-Care Prescriptions Prescriptions: No Action No Known Home Medications Referrals Follow up/Referrals: Seda Jimenez APRN [Primary Care Provider, Medical] - See instructions Activity Restrictions/Add. Instructions Additional Instructions/Restrictions: Recommend continuing doing soaks and manipulating the nail as discussed. Recommend topical antibiotic ointment. Please follow-up with your primary care provider. Please return to the emergency department if you develop any new or worsening symptoms or become concerned for your health. Clinical Impressions Clinical Impression: Paronychia of great toe, left Instructions Patient Instructions: DI for Ingrown Toenail Print Language Print Language: Korean Discharge ED Provider: Keshav Hinton General Adult HPI General Chief complaint: Skin/Abscess/Foreign Body Stated complaint: ingrown toenail Time Seen by Provider: 06/09/25 23:45 History of Present Illness HPI narrative: 19-year-old male without significant past medical history presents for an ingrown toenail on the left great toe. He reports that it has been ongoing for couple of days. He has been soaking it at home and expressing some pus but it feels like it still getting worse. Denies fever. No redness is extending up the toe. Related Data Home Medications ?Medication ?Instructions ?Recorded ?Confirmed No Known Home Medications 09/10/24 09/10/24 Allergies Allergy/AdvReac Type Severity Reaction Status Date / Time No Known Allergies Allergy Verified 07/06/24 00:26 [facility] Disclaimer: The information contained in this section may have been updated after the patient was seen, as this information can be updated by other users. Social History (Updated 09/10/24 @ 11:30 by Gene Shipley MD) Smoking Status: Never smoker alcohol intake: never current occupational status: employed Travel in the last 8 weeks?: None Have you lived/traveled outside [place] in past 30 days?: No Contact w/someone who lives/traveled outside [place] past 30 days?: No Exposure to someone with infectious disease in past 14 days?: No Do you have a fever (greater than 100.4 F or 38 C)?: No Have you tested positive for COVID-19?: No Exposed to someone with COVID-19 in past 14 days?: No Do you have a sore throat?: No Do you have a cough?: No Do you have any weakness?: No Do you have any diarrhea?: No Are you experiencing any unusual bleeding?: No Do you have any muscle aches/pain?: No Do you have any abdominal pain?: No Are you experiencing loss of taste or smell?: No ROS Obtained: Yes All systems reviewed & no additional complaints except as documented Physical Exam General General appearance: alert and in no apparent distress Head Head exam: atraumatic and normocephalic Eye Eye exam: Present normal appearance, PERRL and EOMI ENT ENT exam: Present normal oropharynx and normal external ear exam Neck Neck exam: Present normal inspection and full ROM Chest Chest inspection: Present normal inspection and symmetric chest wall rise; Absent tenderness Respiratory Respiratory exam: Present normal lung sounds bilaterally; Absent respiratory distress Cardiovascular Cardiovascular exam: Present regular rate and normal rhythm Abdominal Exam Abdominal exam: Present soft; Absent distention, tenderness or guarding Extremities Exam Extremities exam: Present other (Mild ingrown toenail and paronychia of the left great toe); Absent edema or joint swelling Back Exam Back exam: Present normal inspection; Absent tenderness Neurological Exam Neurological exam: Present alert and oriented X3; Absent motor sensory deficit Psychiatric Psychiatric exam: Present normal affect and normal mood Skin Skin exam: Present warm, dry and normal color Lymphatic Lymphatic Findings: no adenopathy Medical Decision Making Medical Records Medical records reviewed: Yes I reviewed the patient's medical records. Screening: Per USPSTF and CDC recommendations, given the prevalence of disease in our region, it is our hospital?s policy to screen for HIV and viral Hepatitis for all patients aged 18 and over and those with ongoing risk factors. Tomy Inquiry Pt receiving controlled substance: No Tomy was queried for this patient: No Vital Signs: 06/09/25 23:51 06/10/25 00:02 Temperature 97.8 F 97.8 F Temperature Source Oral Oral Pulse Rate 77 Pulse Rate [Left] 78 Respiratory Rate 17 16 Blood Pressure 139/83 Blood Pressure [Right Arm] 116/73 Blood Pressure Mean [Right Arm] 87 Blood Pressure Source Automatic Cuff Blood Pressure Source [Right Arm] Automatic Cuff Blood Pressure Position Supine Blood Pressure Position [Right Arm] Sitting 02 Sat by Pulse Oximetry 99 Oxygen Delivery Method Room Air Room Air Lab Data Lab results reviewed: Yes I reviewed the patient's lab results. Medical Decision Narrative: 19-year-old male without significant past medical history presents for left ingrown toenail. History was obtained via interactive discussion with patient. On arrival, patient is [afebrile, hemodynamically stable, satting appropriately, alert, oriented x4, GCS 15], moving all extremities spontaneously. Full physical exam performed and significant for mild left ingrown toenail and paronychia Differential includes but is not limited to ingrown toenail, paronychia, abscess, cellulitis. It is currently mild in appearance, small volume of purulence can be expressed without significant difficulty. I offered to do a digital block and to cut back the toenail, but given it is pretty mild in appearance I do not think it is necessary at this point. After discussion with patient, he will continue to do soaks and manipulation at home. Recommend he start topical antibiotics. Return precautions given. Procedures Risk/Benefits of Procedure(s) Were Explained: Yes Critical Care Critical Care Time Critical Care Time: No
[2025-06-10 00:02] VITALS: BP 139/83; PULSE 77; RESP 16; TEMP 36.6; O2SAT 97
== END 2025-06-10 00:06 | disposition home or self-care (01) ==
PROVIDERS: Emergency Provider Emergency Medicine; PCP Nurse Practitioner Family
DX: L03.032 Cellulitis of left toe (principal)
CPT/HCPCS: 99283